=== PATIENT | female | born 1990 | race Caucasian/White ===

== ENCOUNTER 2020-09-17 16:00 | Emergency (ER) | payer OTHER ==
[2020-09-17 16:46] LABS: RED BLOOD COUNT 4.64 M/UL (4.00-5.10); WHITE BLOOD COUNT 6.7 K/UL (4.5-11.0)
[2020-09-17 17:09] LABS: BUN/CREATININE RATIO 13 (0-10)
[2020-09-17] MEDS ORDERED: MACROBID 100 M100 MG PO (18:04)
[2020-09-17] MEDS ORDERED: ZOFRAN4 MG PO (18:04)
== END 2020-09-17 18:20 | disposition home or self-care (01) ==
LOC: ER1 16:00
PROVIDERS: Physician Assistant Medical
DX: N39.0 Urinary tract infection, site not specified (principal); I10 Essential (primary) hypertension; J45.909 Unspecified asthma, uncomplicated; F17.210 Nicotine dependence, cigarettes, uncomplicated; D64.9 Anemia, unspecified; Z88.0 Allergy status to penicillin
CPT/HCPCS: 36415; 80053; 81001; 84702; 85025; 85610; 99284

== ENCOUNTER 2021-03-10 21:47 | Emergency (ER) | payer OTHER ==
[~2021-03-10 21:47] MED LIST: MACROBID 100 M100 MG PO; ZOFRAN4 MG PO
== END 2021-03-10 22:50 | disposition left against medical advice (07) ==
LOC: ER1 21:47
DX: Z53.21 Procedure and treatment not carried out due to patient leaving prior to being seen by health care provider (principal)